=== PATIENT | male | born 1970 | race Caucasian/White ===

== ENCOUNTER 2020-02-21 08:03 | Emergency (ER) | payer BC, OTHER ==
[~2020-02-21] VITALS: Ht 175.3 cm; Wt 77.6 kg
[2020-02-21] MEDS ORDERED: ONDANSETRON 4MG/2ML VIAL (J2405) IV ONE (08:45)
[2020-02-21] MEDS ORDERED: NS 1,000 ML IV ONE (08:45)
[2020-02-21] MEDS ORDERED: MORPHINE 4 MG/ML 1ML VIAL/SYRINGE (J2270) IV ONE ×2 (08:45→12:00)
[2020-02-21 09:08] LABS: BASO % 0.3 % (0.0-1.0); EOS % 0.2 % (0.0-3.0); HEMATOCRIT 43.9 % (42.0-52.0); HEMOGLOBIN 14.8 g/dl (13.5-17.5); LYMPH # 0.9 10^3/uL (1.5-5.0); LYMPH % 7.7 % (24.0-44.0); MEAN CORPUSCULAR HEMOGLOBIN 29.7 pg (27.0-33.0); MEAN CORPUSCULAR HGB CONC 33.7 g/dl (32.0-36.5); MEAN CORPUSCULAR VOLUME 88.2 fl (80.0-96.0); MONO # 0.5 10^3/uL (0.0-0.8); MONO % 3.9 % (0.0-5.0); NEUTROPHILS # 10.7 10^3/uL (1.5-8.5); NEUTROPHILS % 87.4 % (36.0-66.0); PLATELET COUNT, AUTOMATED 237 10^3/uL (150-450); RED BLOOD COUNT 4.98 10^6/uL (4.30-6.10); WHITE BLOOD COUNT 12.3 10^3/uL (4.0-10.0)
[2020-02-21 09:36] LABS: ALBUMIN 4.3 GM/DL (3.2-5.2); ALT/SGPT 24 U/L (12-78); BILIRUBIN,DIRECT 0.1 MG/DL (0.0-0.2); BILIRUBIN,TOTAL 0.4 MG/DL (0.2-1.0); BLOOD UREA NITROGEN 25 MG/DL (7-18); CALCIUM LEVEL 9.3 MG/DL (8.5-10.1); CARBON DIOXIDE LEVEL 30 MEQ/L (21-32); CHLORIDE LEVEL 107 MEQ/L (98-107); CREATININE FOR GFR 1.34 MG/DL (0.70-1.30); GLOMERULAR FILTRATION RATE > 60.0 (>60); GLUCOSE, FASTING 145 MG/DL (70-100); LIPASE 106 U/L (73-393); POTASSIUM SERUM 4.7 MEQ/L (3.5-5.1); SODIUM LEVEL 142 MEQ/L (136-145); TOTAL PROTEIN 7.6 GM/DL (6.4-8.2)
[2020-02-21] MEDS ORDERED: TAMSULOSIN 0.4 MG CAP PO ONE (10:15)
[2020-02-21] MEDS ORDERED: FLOM0.4C39 PO (11:23)
[2020-02-21] MEDS ORDERED: ONDA4TAB6 PO (11:23)
--- NOTE | 2020-02-21 11:27 | REP ---
CT ABDOMEN AND PELVIS WITHOUT CONTRAST: CT abdomen and pelvis performed without oral or IV contrast. Sagittal and coronal reconstruction images are performed. Visualized lung bases are clear. The liver and gallbladder are grossly unremarkable. Spleen is normal in size with no intrinsic abnormality. Adrenal glands are normal. Pancreas is grossly unremarkable. Cyst is seen along the lateral cortex of the mid left kidney measuring about 1.2 cm in diameter. There also appears to be a small cyst in the upper pole of the right kidney approximately 1 cm in diameter. There is mild right hydroureteronephrosis caused by a 5 mm stone in the distal end of the right ureter. Urinary bladder is mildly distended and grossly unremarkable. There is no abdominal aortic aneurysm. There is no adenopathy. There is no free air or free fluid. There are scattered diverticula throughout the colon, primarily in the sigmoid colon, without acute diverticulitis. The appendix is normal. No pelvic mass is seen. There is a small hiatal hernia and umbilical hernia. There is mild cardiomegaly. IMPRESSION: There is a 5 mm calculus in the distal end of the right ureter causing mild right hydroureteronephrosis. Mild cardiomegaly. Small hiatal hernia. Scattered diverticula without acute diverticulitis. There appears to be a small cyst of each kidney. Small umbilical hernia contains fat. Electronically Signed by Rey Ly MD 02/21/2020 12:12 P
[2020-02-21] MEDS ORDERED: NORCO 5/325MG TABLET (BULK FOR ED) PO ONE (11:30)
[2020-02-21 11:42] VITALS: BP 130/72
[2020-02-21] MEDS ORDERED: NORC1TAB7 PO (12:30)
== END 2020-02-21 12:09 | disposition home or self-care (01) ==
LOC: M ED 08:03
DX: N13.1 Hydronephrosis with ureteral stricture, not elsewhere classified (principal); N13.4 Hydroureter; N28.1 Cyst of kidney, acquired; E86.0 Dehydration; I51.7 Cardiomegaly; K44.9 Diaphragmatic hernia without obstruction or gangrene; K57.30 Diverticulosis of large intestine without perforation or abscess without bleeding; Z88.8 Allergy status to other drugs, medicaments and biological substances; Z79.899 Other long term (current) drug therapy
CPT/HCPCS: 74176; 80048; 80076; 81001; 83690; 85025; 96361; 96374; 96375; 96376; 99284; J2270; J2405